=== PATIENT | male | born 1975 | race Two or more races ===

== ENCOUNTER 2024-08-25 06:24 | Day surgery (SDC) | payer BC, SELFPAY | END 2024-08-25 15:19 | disposition home or self-care (01) | LOC: GI 06:24 | PROVIDERS: ATTENDING PHYSICIAN Internal Medicine Gastroenterology | DX: Z12.11 Encounter for screening for malignant neoplasm of colon (principal); K64.8 Other hemorrhoids; D12.3 Benign neoplasm of transverse colon; K21.9 Gastro-esophageal reflux disease without esophagitis; K29.70 Gastritis, unspecified, without bleeding | CPT/HCPCS: 45385; 43239; 88305; 88342 ==